=== PATIENT | male | born 1975 | race Caucasian/White ===

== ENCOUNTER 2017-05-17 13:58 | Inpatient (IN) | payer MEDICAID ==
[~2017-05-17] VITALS: Ht 182.9 cm; Wt 91.3 kg
[2017-05-17 15:26] LABS: PLATELET COUNT 243 x10^3mcL (130-400); RED CELL DISTRIBUTION WIDTH 14.5 % (11.5-14.5)
[2017-05-17 15:28] LABS: BASOPHIL % 0 % (0-2)
[2017-05-17 15:45] LABS: ALKALINE PHOSPHATASE 174 U/L (46-116); ALT/SGPT 37 U/L (16-63); AST/SGOT 284 U/L (15-37); BILIRUBIN TOTAL 4.3 mg/dL (0.20-1.00); CALCIUM 7.7 mg/dL (8.5-10.1); CARBON DIOXIDE 16.9 mmol/L (21-32); CHLORIDE SERUM 83 mmol/L (98-107); CREATININE SERUM 0.9 mg/dL (0.7-1.3); GFR1 > 60 mL/min; LIPASE 389 IU/L (73-393); POTASSIUM SERUM 4.3 mmol/L (3.5-5.1); TOTAL PROTEIN, SERUM 6.7 g/dL (6.4-8.2)
[2017-05-17 15:51] LABS: ALBUMIN 1.9 g/dL (3.4-5.0); GLUCOSE SERUM 51 mg/dL (74-106); SODIUM SERUM 122 mmol/L (136-145)
[2017-05-17 18:08] LABS: MAGNESIUM 1.9 mg/dL (1.8-2.4); PHOSPHOROUS 3.4 mg/dL (2.5-4.9)
[2017-05-17 18:11] VITALS: BP 122/68
[2017-05-17 18:14] LABS: CHOLESTEROL/HDL RATIO 17.9
[2017-05-17 18:16] LABS: T3 TOTAL 0.56 ng/mL
[2017-05-17 18:17] LABS: FREE T4 1.27 ng/dL (0.76-1.46); FREE THYROXINE INDEX 2.1 ug/dL (1.4-4.5); T4(THYROXINE) 5.1 ug/dL (4.7-13.3)
[2017-05-17 21:32] VITALS: BP 128/55
[2017-05-17 21:49] LABS: CALCIUM 7.5 mg/dL (8.5-10.1); CARBON DIOXIDE 13.2 mmol/L (21-32); CHLORIDE SERUM 85 mmol/L (98-107); CREATININE SERUM 0.7 mg/dL (0.7-1.3); GFR1 > 60 mL/min; GLUCOSE SERUM 61 mg/dL (74-106); SODIUM SERUM 126 mmol/L (136-145)
[2017-05-18 05:58] LABS: BASOPHIL % 0.1 % (0-2); PLATELET COUNT 210 x10^3mcL (130-400)
[2017-05-18 06:19] VITALS: BP 135/68
[2017-05-18 06:37] LABS: RED CELL DISTRIBUTION WIDTH 14.6 % (11.5-14.5)
[2017-05-18 06:38] LABS: CALCIUM 7.2 mg/dL (8.5-10.1); CARBON DIOXIDE 20.9 mmol/L (21-32); CHLORIDE SERUM 87 mmol/L (98-107); CREATININE SERUM 1.1 mg/dL (0.7-1.3); GFR1 > 60 mL/min; GLUCOSE SERUM 116 mg/dL (74-106); MAGNESIUM 2.1 mg/dL (1.8-2.4); PHOSPHOROUS 1.9 mg/dL (2.5-4.9)
[2017-05-18 06:42] LABS: SODIUM SERUM 122 mmol/L (136-145)
[2017-05-18 08:37] LABS: OSMOLALITY SERUM 278 mOsm/kg (278-298)
[2017-05-18 09:44] VITALS: BP 128/74
[2017-05-18 12:19] LABS: microscopic required? YES; urine erythrocyte TRACE (NEGATIVE)
[2017-05-18 12:25] LABS: AMPHETAMINE QUAL UR NONE DETECTED (NEG <=1000)
[2017-05-18 12:40] VITALS: BP 146/64
[2017-05-18 12:45] VITALS: BP 143/76
[2017-05-18 17:58] VITALS: BP 110/53
[2017-05-18 22:16] VITALS: BP 128/72
[2017-05-19 06:22] VITALS: BP 94/55
[2017-05-19 06:43] LABS: CALCIUM 7.4 mg/dL (8.5-10.1); CARBON DIOXIDE 25.9 mmol/L (21-32); CHLORIDE SERUM 95 mmol/L (98-107); CREATININE SERUM 1.3 mg/dL (0.7-1.3); GFR1 > 60 mL/min; GLUCOSE SERUM 98 mg/dL (74-106); MAGNESIUM 2.2 mg/dL (1.8-2.4); PHOSPHOROUS 2.8 mg/dL (2.5-4.9); POTASSIUM SERUM 3.7 mmol/L (3.5-5.1); SODIUM SERUM 132 mmol/L (136-145)
[2017-05-19 06:51] LABS: BASOPHIL % 0.1 % (0-2); PLATELET COUNT 181 x10^3mcL (130-400)
[2017-05-19 06:52] LABS: RED CELL DISTRIBUTION WIDTH 15.5 % (11.5-14.5)
[2017-05-19 12:39] VITALS: BP 104/49
[2017-05-19 16:20] VITALS: BP 92/52
[2017-05-19 20:00] VITALS: BP 81/44
[2017-05-19 21:02] LABS: APPEARANCE FLUID CLEAR; COLOR FLUID PALE YELLOW; RBC FLUID 44 /cumm; SOURCE FLUID PARACENTESIS; WBC FLUID 83 /cumm
[2017-05-19 21:03] LABS: LYMPHOCYTE FLUID 40 %; MONOCYTE FLUID 10 %
[2017-05-19 22:14] LABS: PLATELET COUNT 127 x10^3mcL (130-400); RED CELL DISTRIBUTION WIDTH 16.2 % (11.5-14.5)
[2017-05-19 22:31] LABS: BAND NEUTROPHIL 5 % (0-10); METAMYELOCTE 5 % (0-2); MONOCYTE 4 % (0-7); MYELOCYTE 2 % (0-2); SEGMENTED NEUTROPHILS 81 % (37-75)
[2017-05-19 22:32] LABS: PLATELET MORPHOLOGY FEW LARGE PLATELET; rbc morphology (normal/abnorm) ABNORMAL (NORMAL); tear drop cell (dacryocyte) 1+
[2017-05-20] VITALS (15 sets, daily range): BP systolic 74–129; BP diastolic 30–57
[2017-05-20 07:11] LABS: CALCIUM 7.4 mg/dL (8.5-10.1); CARBON DIOXIDE 11.9 mmol/L (21-32); CREATININE SERUM 2.8 mg/dL (0.7-1.3); MAGNESIUM 3.8 mg/dL (1.8-2.4); PHOSPHOROUS 7.6 mg/dL (2.5-4.9); POTASSIUM SERUM 4.6 mmol/L (3.5-5.1)
[2017-05-20 07:27] LABS: PLATELET COUNT 129 x10^3mcL (130-400); RED CELL DISTRIBUTION WIDTH 21.8 % (11.5-14.5)
[2017-05-20 08:51] LABS: BAND NEUTROPHIL 6 % (0-10); BASOPHIL 0 % (0-2); METAMYELOCTE 4 % (0-2); MONOCYTE 4 % (0-7); MYELOCYTE 2 % (0-2); SEGMENTED NEUTROPHILS 81 % (37-75)
[2017-05-20 08:53] LABS: rbc morphology (normal/abnorm) ABNORMAL (NORMAL)
[2017-05-20 08:54] LABS: burr cell (echinocyte) 1+; tear drop cell (dacryocyte) 1+
[2017-05-21] VITALS (19 sets, daily range): BP systolic 53–142; BP diastolic 23–61; Ht 182.9 cm; Wt 91.3 kg
[2017-05-21 05:28] LABS: CALCIUM 6.6 mg/dL (8.5-10.1); CARBON DIOXIDE 15.4 mmol/L (21-32); CREATININE SERUM 3.6 mg/dL (0.7-1.3); MAGNESIUM 3.6 mg/dL (1.8-2.4); PHOSPHOROUS 7.2 mg/dL (2.5-4.9)
[2017-05-21 05:30] LABS: PLATELET COUNT 99 x10^3mcL (130-400); RED CELL DISTRIBUTION WIDTH 23.6 % (11.5-14.5)
[2017-05-21 08:51] LABS: BASOPHIL 0 % (0-2)
[2017-05-21 08:53] LABS: rbc morphology (normal/abnorm) ABNORMAL (NORMAL); schistocyte (helmet cell) 1+
[2017-05-21 08:54] LABS: PLATELET MORPHOLOGY PLATELETS DECREASED
[2017-05-21 17:16] LABS: CALCIUM 6.5 mg/dL (8.5-10.1); CREATININE SERUM 3.9 mg/dL (0.7-1.3); POTASSIUM SERUM 4.5 mmol/L (3.5-5.1)
[2017-05-21 17:29] LABS: CARBON DIOXIDE 9.7 mmol/L (21-32)
[2017-05-21 18:40] LABS: PLATELET COUNT 90 x10^3mcL (130-400); RED CELL DISTRIBUTION WIDTH 25.1 % (11.5-14.5)
[2017-05-21 18:41] LABS: ATYPICAL LYMPH 2 %
[2017-05-21 18:44] LABS: BAND NEUTROPHIL 25 % (0-10); SEGMENTED NEUTROPHILS 40 % (37-75)
[2017-05-21 18:45] LABS: METAMYELOCTE 3 % (0-2); MONOCYTE 10 % (0-7); MYELOCYTE 11 % (0-2); rbc morphology (normal/abnorm) ABNORMAL (NORMAL)
[2017-05-21 18:46] LABS: schistocyte (helmet cell) 1+
[2017-05-21 18:47] LABS: PLATELET MORPHOLOGY LARGE PLATELET SEEN
[2017-05-22 06:57] LABS: BAND NEUTROPHIL 32 % (0-10); SEGMENTED NEUTROPHILS 50 % (37-75)
[2017-05-22 06:58] LABS: MONOCYTE 12 % (0-7)
== END 2017-05-22 00:51 | disposition expired | DRG 720 ==
LOC: ED 13:58 → IC 17:11 → DU 17:11 → EDBEDREQ 17:12 → DU 17:54 → IC 05-19 09:36 → DU 05-19 15:54 → IC 05-19 15:54 → DU 05-19 15:54 → IC 05-22 00:51
PROVIDERS: Emergency Medicine; Family Medicine; Internal Medicine Gastroenterology; Student in an Organized Health Care Education/Training Program
PROC: 0W9G3ZZ Drainage of Peritoneal Cavity, Percutaneous Approach (ICD-10-PCS; 2017-05-19)
PROC: 05HM33Z Insertion of Infusion Device into Right Internal Jugular Vein, Percutaneous Approach (ICD-10-PCS; 2017-05-19)
PROC: B543ZZA Ultrasonography of Right Jugular Veins, Guidance (ICD-10-PCS; 2017-05-19)
PROC: 06L38CZ Occlusion of Esophageal Vein with Extraluminal Device, Via Natural or Artificial Opening Endoscopic (ICD-10-PCS; 2017-05-20)
PROC: 5A1945Z Respiratory Ventilation, 24-96 Consecutive Hours (ICD-10-PCS; principal; 2017-05-20 10:00)
PROC: 0BH17EZ Insertion of Endotracheal Airway into Trachea, Via Natural or Artificial Opening (ICD-10-PCS; 2017-05-20 10:00)
DX: A41.9 Sepsis, unspecified organism (principal); N17.0 Acute kidney failure with tubular necrosis; J96.00 Acute respiratory failure, unspecified whether with hypoxia or hypercapnia; J69.0 Pneumonitis due to inhalation of food and vomit; R65.21 Severe sepsis with septic shock; I85.00 Esophageal varices without bleeding; E87.1 Hypo-osmolality and hyponatremia; E43 Unspecified severe protein-calorie malnutrition; K29.71 Gastritis, unspecified, with bleeding; K70.31 Alcoholic cirrhosis of liver with ascites; K70.40 Alcoholic hepatic failure without coma; E86.0 Dehydration; E78.2 Mixed hyperlipidemia; F10.239 Alcohol dependence with withdrawal, unspecified; F10.229 Alcohol dependence with intoxication, unspecified; F12.10 Cannabis abuse, uncomplicated; F17.210 Nicotine dependence, cigarettes, uncomplicated; Y90.4 Blood alcohol level of 80-99 mg/100 ml; Z68.22 Body mass index [BMI] 22.0-22.9, adult; Z66 Do not resuscitate
CPT/HCPCS: 36556; 36600; 43235; 82962; 83880; 84439; A4628; C9113; G0480; J0171; J0330; J0696; J0698; J1200; J1610; J1642; J1940; J1956; J2060; J2250; J2270; J2310; J2354; J2370; J2543; J2765; J3010; J3430; J3490; J7030; J7040; J7042; J7050; J7620; P9016; P9047; P9059; Q0092; Q0163; Q9966